=== PATIENT | female | born 1950 | race Caucasian/White ===

== ENCOUNTER 2023-10-17 12:50 | Outpatient (RCR) | payer MEDICARE, OTHER, SELFPAY | END 2023-10-17 23:59 | disposition home or self-care (01) | LOC: ROT 12:50 | PROVIDERS: ATTENDING PHYSICIAN Orthopaedic Surgery Hand Surgery; FAMILY PHYSICIAN Nurse Practitioner Primary Care | DX: M77.11 Lateral epicondylitis, right elbow (principal) | CPT/HCPCS: 97010; 97035; 97110; 97140; 97166; 97535 ==

== ENCOUNTER 2023-11-03 11:53 | Outpatient (RCR) | payer MEDICARE, OTHER, SELFPAY | END 2023-11-03 23:59 | disposition home or self-care (01) | LOC: RPT 11:53 | PROVIDERS: ATTENDING PHYSICIAN Orthopaedic Surgery Hand Surgery; FAMILY PHYSICIAN Nurse Practitioner Primary Care | DX: M77.11 Lateral epicondylitis, right elbow (principal); Z73.6 Limitation of activities due to disability | CPT/HCPCS: 97010; 97035; 97110; 97140 ==

== ENCOUNTER → 2024-06-29 13:37 | Outpatient (REF) | payer MEDICARE, OTHER, SELFPAY | LOC: HWWDC 13:37 | PROVIDERS: ATTENDING PHYSICIAN Nurse Practitioner Primary Care | DX: M81.0 Age-related osteoporosis without current pathological fracture (principal); Z12.31 Encounter for screening mammogram for malignant neoplasm of breast | CPT/HCPCS: 77063; 77067; 77080 ==

== ENCOUNTER 2025-02-07 14:28 | Outpatient (RCR) | payer MEDICARE, OTHER, SELFPAY | END 2025-02-07 23:59 | disposition home or self-care (01) | LOC: ROT 14:28 | PROVIDERS: ATTENDING PHYSICIAN Orthopaedic Surgery Orthopaedic Trauma; FAMILY PHYSICIAN Nurse Practitioner Primary Care | DX: Z47.89 Encounter for other orthopedic aftercare (principal); M25.521 Pain in right elbow; Z73.6 Limitation of activities due to disability; M62.81 Muscle weakness (generalized) | CPT/HCPCS: 97018; 97110; 97140; 97166; 97535 ==

== ENCOUNTER 2025-03-18 07:43 | Outpatient (RCR) | payer MEDICARE, OTHER, SELFPAY | END 2025-03-18 23:59 | disposition home or self-care (01) | LOC: ROT 07:43 | PROVIDERS: ATTENDING PHYSICIAN Orthopaedic Surgery Orthopaedic Trauma; FAMILY PHYSICIAN Nurse Practitioner Primary Care | DX: Z47.89 Encounter for other orthopedic aftercare (principal); M25.521 Pain in right elbow; Z73.6 Limitation of activities due to disability; R60.0 Localized edema; M62.81 Muscle weakness (generalized) | CPT/HCPCS: 97018; 97110; 97140 ==